=== PATIENT | female | born 1950 | race African-American/Black ===

== ENCOUNTER 2024-01-31 08:43 | Inpatient (IN) | payer MEDICARE ==
[~2024-01-31] VITALS: Ht 162.6 cm; Wt 94.4 kg
[2024-01-31] VITALS (8 sets, daily range): BP systolic 148–164; BP diastolic 98–103; PULSE 84–98; RESP 17–28; TEMP 36.78072–36.8072; O2SAT 98–100
[2024-01-31] MEDS: IPRATROPIUM/ALBUTEROL 0.5-3(2.5)MG/3ML NEB HHN SCH (01:05)
[2024-01-31] MEDS ORDERED: ENOXAPARIN 80MG/0.8ML SYR SUBCUT SCH (09:00)
[2024-01-31] MEDS: FUROSEMIDE 100MG/10ML VIAL IVP ONE (09:19)
[2024-01-31 09:24] LABS: BASOPHILS % 0.5 % (0.0-2.0); EOSINOPHILS % 0.8 % (0.0-5.0); HEMATOCRIT. 43.9 % (36.0-48.0); HEMOGLOBIN. 14.3 g/dL (12.0-16.0); LYMPHOCYTES % 12.1 % (20.0-50.0); MEAN CORPUSCULAR HEMOGLOBIN 29.4 pg (28.0-32.0); MEAN CORPUSCULAR HGB CONC 32.5 g/dL (31.0-37.0); MEAN CORPUSCULAR VOLUME 90.5 fL (81.0-99.0); MEAN PLATELET VOLUME 10.1 fl (7.4-10.4); MONOCYTES % 5.7 % (2.0-8.0); NEUTROPHILS % 80.9 % (40.0-76.0); PLATELET 175 x1000/uL (130-400); RED BLOOD CELL COUNT 4.85 mill/uL (4.2-5.4); RED CELL DISTRIBUTION WIDTH 16.8 % (11.6-14.6); WHITE BLOOD COUNT 6.5 x1000/uL (4.5-11.0)
[2024-01-31 09:35] LABS: CHLORIDE 108 mEq/L (98-107); POTASSIUM 3.9 mEq/L (3.5-5.1); SODIUM 144 mEq/L (136-145)
[2024-01-31 09:36] LABS: CALCIUM 10.4 mg/dL (8.7-10.4)
[2024-01-31 09:41] LABS: CREATININE 1.1 mg/dL (0.6-1.0); GLUCOSE 136 mg/dL (70-105); UREA NITROGEN BLOOD 15 mg/dL (9-23)
[2024-01-31 09:42] LABS: TROPONIN I HIGH SENSITIVITY 6 ng/L (3.0-34)
[2024-01-31] MEDS: METHYLPREDNISOLONE SOD SUCC 125MG/2ML (ACT-O-VIAL) IV ONE (10:36)
[2024-01-31] MEDS: ALBUTEROL (0.5%) 2.5MG/0.5ML NEB HHN ONE (11:02)
[2024-01-31] MEDS: IPRATROPIUM/ALBUTEROL 0.5-3(2.5)MG/3ML NEB HHN ONE (11:02)
[2024-01-31 12:17] LABS: CARBON DIOXIDE 24 mEq/L (21-32)
[2024-01-31 12:49] LABS: TROPONIN I HIGH SENSITIVITY 7 ng/L (3.0-34)
[2024-01-31] MEDS: HYDRALAZINE 20MG/ML VIAL IV PRN (13:36)
[2024-01-31] MEDS ORDERED: IPRATROPIUM/ALBUTEROL 0.5-3(2.5)MG/3ML NEB HHN PRN (14:00)
[2024-01-31] MEDS ORDERED: GUAIFENESIN-DM 200MG-20MG/10ML UDC PO PRN (14:00)
[2024-01-31] MEDS: DILTIAZEM HCL 5MG/ML 5ML VIAL IV NR ×2 (14:58→18:32)
[2024-01-31 15:24] LABS: BG BASE EXCESS 2.3 mmol/L (-2.0-3.0); BG CARBOXYHEMOGLOBIN 0.3 % (0.5-1.5); BG DEOXYHEMOGLOBIN 0.5 % (0.0-5.0); BG FRACTION INSPIRED OXYGEN 50; BG METHEMOGLOBIN 0.3 % (0.5-1.5); BG OXYGEN SATURATION 99.5 % (94.0-98.0); BG OXYHEMOGLOBIN 98.9 % (94.0-98.0); BG PCO2 37.6 mmHg (32.0-45.0); BG PH 7.458 (7.350-7.450); BG PO2 184.7 mmHg (83.0-108.0); BG SAMPLE SITE RIGHT RADIAL; BG TOTAL HEMOGLOBIN 14.3 g/dL (12.0-16.0); BG VENT MODE MASK - BIPAP
[2024-01-31] MEDS ORDERED: ONDANSETRON HCL 4MG/2ML INJ IV PRN (18:15)
[2024-01-31] MEDS ORDERED: IPRATROPIUM/ALBUTEROL 0.5-3(2.5)MG/3ML NEB HHN SCH (18:15)
[2024-01-31] MEDS ORDERED: ENOXAPARIN 40MG/0.4ML SYR SUBCUT SCH (18:15)
[2024-01-31] MEDS: PANTOPRAZOLE SODIUM 40 MG/VIAL IV SCH (18:25)
[2024-01-31] MEDS: FUROSEMIDE 40MG/4ML VIAL IVP SCH (18:25)
[2024-01-31 20:40] LABS: INR 1.1; PROTHROMBIN TIME 11.9 sec (9.6-11.0)
[2024-01-31] MEDS ORDERED: LEVO25TA7 PO (21:13)
[2024-01-31] MEDS ORDERED: CARV25TA47 PO (21:13)
[2024-01-31] MEDS: ZOLPIDEM TARTRATE 5MG TABLET PO PRN (23:21)
[2024-01-31] MEDS: DILTIAZEM HCL 30MG TABLET PO SCH (23:22)
[2024-01-31] MEDS: ENOXAPARIN 80MG/0.8ML SYR SUBCUT SCH (23:24)
[2024-02-01] VITALS (9 sets, daily range): BP systolic 120–160; BP diastolic 95–120; PULSE 69–108; RESP 12–28; TEMP 36.05844–36.83628; O2SAT 96–100
[2024-02-01 00:45] LABS: CREATINE KINASE MB FRACTION 4.1 ng/mL (0.5-3.6)
[2024-02-01] MEDS ORDERED: DEXTROSE 50% WATER 50ML SYRINGE IV PRN (01:00)
[2024-02-01] MEDS: BUDESONIDE 0.5MG/2ML NEB HHN SCH (01:04)
[2024-02-01] MEDS: BLOOD SUGAR DIAGNOSTIC STRIP TEST SCH (06:00)
[2024-02-01] MEDS: INSULIN LISPRO 100 UNITS/ML SUBCUT SCH (06:23)
[2024-02-01 06:32] LABS: BASOPHILS % 0.4 % (0.0-2.0); DIFFERENTIAL COMMENT 0; HEMATOCRIT. 43.9 % (36.0-48.0); HEMOGLOBIN. 13.7 g/dL (12.0-16.0); LYMPHOCYTES % 8.9 % (20.0-50.0); MEAN CORPUSCULAR HEMOGLOBIN 28.6 pg (28.0-32.0); MEAN CORPUSCULAR HGB CONC 31.1 g/dL (31.0-37.0); MEAN CORPUSCULAR VOLUME 91.8 fL (81.0-99.0); MEAN PLATELET VOLUME 10.3 fl (7.4-10.4); NEUTROPHILS % 84.7 % (40.0-76.0); PLATELET 158 x1000/uL (130-400); RED BLOOD CELL COUNT 4.78 mill/uL (4.2-5.4); RED CELL DISTRIBUTION WIDTH 17.1 % (11.6-14.6); WHITE BLOOD COUNT 8.7 x1000/uL (4.5-11.0)
[2024-02-01 06:48] LABS: POTASSIUM 4.3 mEq/L (3.5-5.1)
[2024-02-01 06:49] LABS: CALCIUM 10.5 mg/dL (8.7-10.4)
[2024-02-01 06:50] LABS: CREATINE KINASE MB FRACTION 4.1 ng/mL (0.5-3.6)
[2024-02-01 06:54] LABS: CREATININE 1.2 mg/dL (0.6-1.0)
[2024-02-01] MEDS: CLONIDINE 0.1MG TABLET PO PRN (06:59)
[2024-02-01] MEDS ORDERED: GLIP1TAB4 MT (07:23)
[2024-02-01] MEDS ORDERED: LOSA100T33 PO (07:25)
[2024-02-01] MEDS ORDERED: LOVA40TA73 PO (07:26)
[2024-02-01] MEDS ORDERED: HYDR50TA40 PO (07:26)
[2024-02-01] MEDS ORDERED: FURO-151 PO (07:27)
[2024-02-01] MEDS ORDERED: DILT240T12 PO (07:28)
[2024-02-01] MEDS: CARVEDILOL 12.5MG TABLET PO SCH ×2 (08:33→21:18)
[2024-02-01] MEDS: ENOXAPARIN 80MG/0.8ML SYR SUBCUT SCH (08:34)
[2024-02-01] MEDS: CETIRIZINE 10MG TABLET PO SCH (17:30)
[2024-02-01 21:02] LABS: HEPATITIS B SURFACE ANTIGEN NEGATIVE (Negative)
[2024-02-01] MEDS: DILTIAZEM HCL 60MG TABLET PO SCH (21:16)
[2024-02-01 21:23] LABS: HEPATITIS C AB NON REACTIVE (Neg) (Negative)
[2024-02-02] VITALS (11 sets, daily range): BP systolic 110–155; BP diastolic 77–123; PULSE 66–108; RESP 12–25; TEMP 36.114–36.9474; O2SAT 94–98
[2024-02-02 06:56] LABS: BASOPHILS % 0.5 % (0.0-2.0); DIFFERENTIAL COMMENT 0; EOSINOPHILS % 0.6 % (0.0-5.0); HEMOGLOBIN. 13.5 g/dL (12.0-16.0); LYMPHOCYTES % 19.9 % (20.0-50.0); MEAN CORPUSCULAR HEMOGLOBIN 28.5 pg (28.0-32.0); MEAN CORPUSCULAR HGB CONC 31.4 g/dL (31.0-37.0); MEAN CORPUSCULAR VOLUME 90.8 fL (81.0-99.0); MEAN PLATELET VOLUME 10.4 fl (7.4-10.4); MONOCYTES % 5.8 % (2.0-8.0); NEUTROPHILS % 73.2 % (40.0-76.0); PLATELET 157 x1000/uL (130-400); RED BLOOD CELL COUNT 4.73 mill/uL (4.2-5.4); RED CELL DISTRIBUTION WIDTH 16.7 % (11.6-14.6)
[2024-02-02 06:57] LABS: CHLORIDE 103 mEq/L (98-107); POTASSIUM 3.6 mEq/L (3.5-5.1); SODIUM 142 mEq/L (136-145)
[2024-02-02 06:58] LABS: CALCIUM 10.4 mg/dL (8.7-10.4); CARBON DIOXIDE 33 mEq/L (21-32)
[2024-02-02 07:02] LABS: TROPONIN I HIGH SENSITIVITY 32 ng/L (3.0-34)
[2024-02-02 07:03] LABS: GLUCOSE 112 mg/dL (70-105); UREA NITROGEN BLOOD 15 mg/dL (9-23)
[2024-02-02] MEDS: IPRATROPIUM BROMIDE (0.02%) 0.5MG/2.5ML NEB HHN SCH (09:46)
[2024-02-02] MEDS: FLUTICASONE PROPIONATE 50MCG/SPRAY BOTTLE BOTHNSTRLS SCH (20:52)
[2024-02-03] VITALS (11 sets, daily range): BP systolic 111–150; BP diastolic 75–105; PULSE 62–92; RESP 13–20; TEMP 36.44736–36.83628; O2SAT 95–100
[2024-02-03 07:32] LABS: D-DIMER < 0.19 mg/L FEU (<0.50); PARTIAL THROMBOPLASTIN TIME 33.2 sec (23.4-31.0); PROTHROMBIN TIME 11.4 sec (9.6-11.0)
[2024-02-03] MEDS: LEVOTHYROXINE SODIUM 50MCG TABLET PO SCH (11:27)
[2024-02-03] MEDS ORDERED: APIX5TAB MT (12:51)
[2024-02-03] MEDS ORDERED: IOHEXOL-350 100 ML BOTTLE ONE (15:21)
[2024-02-03] MEDS: ACETAMINOPHEN 325MG TABLET PO PRN (17:50)
[2024-02-04] MEDS ORDERED: LEVOTHYROXINE SODIUM 50MCG TABLET PO SCH (06:50)
== END 2024-02-03 18:41 | disposition home or self-care (01) | DRG 291 ==
LOC: ER 08:43 → EDBD 08:43 → 5WST 10:23 → EDBEDREQ 10:52 → EDBEDREQTM 10:52 → EDBEDREQSVC 18:11 → 3WST 22:05
PROVIDERS: ADMIT Internal Medicine; ATTEND Internal Medicine
PROC: 5A09357 Assistance with Respiratory Ventilation, Less than 24 Consecutive Hours, Continuous Positive Airway Pressure (ICD-10-PCS; principal; 2024-01-31)
DX: I11.0 Hypertensive heart disease with heart failure (principal); I50.41 Acute combined systolic (congestive) and diastolic (congestive) heart failure; J96.21 Acute and chronic respiratory failure with hypoxia; J44.1 Chronic obstructive pulmonary disease with (acute) exacerbation; I48.19 Other persistent atrial fibrillation; D68.59 Other primary thrombophilia; E03.9 Hypothyroidism, unspecified; I49.3 Ventricular premature depolarization; E11.9 Type 2 diabetes mellitus without complications; E78.5 Hyperlipidemia, unspecified; Z79.01 Long term (current) use of anticoagulants; Z79.84 Long term (current) use of oral hypoglycemic drugs; Z85.71 Personal history of Hodgkin lymphoma; Z79.899 Other long term (current) drug therapy
CPT/HCPCS: 36415; 36600; 71045; 71275; 76604; 80048; 82375; 82550; 82553; 82805; 82962; 83735; 83880; 84145; 84443; 84484; 85025; 85379; 86705; 87340; 93005; 93306; 93880; 93970; 94640; 94660; 99291; J0360; J1650; J1815; J1940; J2470; J2919; J3490; J7626; Q9967